=== PATIENT | female | born 1955 | race African-American/Black ===

== ENCOUNTER 2018-12-21 08:46 | Emergency (ER) | payer OTHER ==
[~2018-12-21] VITALS: Ht 152.4 cm; Wt 68.0 kg
[2018-12-21] MEDS ORDERED: HYDROCHLOROTH12.5 M1 PO (10:41)
[2018-12-21 10:50] LABS: RDW 20.7 % (10.5-14.5)
[2018-12-21 10:51] LABS: MCH 14.8 pg (26.0-34.0); MCHC 27.5 g/dL (28.0-37.0); MCV 53.7 fL (80.0-100.0); PLATELET COUNT 363 thou/uL (150-400); RBC 2.82 mil/uL (4.20-5.00); WBC 4.7 thou/uL (4.0-11.0)
[2018-12-21 11:00] LABS: HEMATOCRIT 15.1 % (37.0-47.0); HEMOGLOBIN 4.2 gm/dL (12.0-15.0)
[2018-12-21 11:01] LABS: % SATURATION 2 % (20-39); IRON 10 ug/dL (50-170); TIBC 524 ug/dL (250-450)
[2018-12-21 11:02] LABS: CALCIUM 9.2 mg/dL (8.5-10.1); CREATININE 0.7 mg/dL (0.6-1.0); POTASSIUM 4.5 mmol/L (3.5-5.1)
[2018-12-21 11:43] LABS: ABSOLUTE NEUTROPHILS 2.8 thou/uL (1.4-8.2); PLATELET ESTIMATE NORMAL
[2018-12-21 11:44] LABS: ANISOCYTOSIS 1+; HYPOCHROMASIA 3+; MICROCYTES 3+; POLYCHROMASIA SLIGHT
[2018-12-21 11:59] VITALS: BP 115/76; BP 119/64; BP 119/70; BP 120/69; BP 123/56
[2018-12-21 15:20] VITALS: BP 123/66; BP 123/68; BP 128/71; BP 128/72; BP 128/76
[2018-12-21] MEDS ORDERED: SENNA-DOCUSATE1 EAC1 PO (16:42)
[2018-12-21] MEDS ORDERED: IRON325 PO (16:42)
[2018-12-21 17:03] VITALS: BP 123/61
== END 2018-12-21 17:06 | disposition home or self-care (01) ==
LOC: ER 08:46
PROVIDERS: Emergency Medicine
DX: D64.9 Anemia, unspecified (principal); I10 Essential (primary) hypertension; Z79.899 Other long term (current) drug therapy; Z88.8 Allergy status to other drugs, medicaments and biological substances

== ENCOUNTER 2021-01-19 14:52 | Emergency (ER) | payer OTHER ==
[~2021-01-19] VITALS: Ht 152.4 cm; Wt 73.5 kg
[~2021-01-19 14:52] MED LIST: HYDROCHLOROTH12.5 M1 PO; IRON325 PO; SENNA-DOCUSATE1 EAC1 PO
[2021-01-19 16:54] VITALS: BP 124/77
== END 2021-01-19 16:54 | disposition home or self-care (01) ==
LOC: ER 14:52
DX: S61.212A Laceration without foreign body of right middle finger without damage to nail, initial encounter (principal); I10 Essential (primary) hypertension; Z79.899 Other long term (current) drug therapy; Z88.1 Allergy status to other antibiotic agents; W29.3XXA Contact with powered garden and outdoor hand tools and machinery, initial encounter; Y93.89 Activity, other specified; Y92.89 Other specified places as the place of occurrence of the external cause; Y99.8 Other external cause status